=== PATIENT | female | born 1945 | race Hispanic/Latino ===

== ENCOUNTER → 2019-11-19 | Outpatient (CLI) | payer OTHER | END | disposition home or self-care (01) | LOC: OIH 15:18 | PROVIDERS: ATTEND Family Medicine | DX: M25.411 Effusion, right shoulder (principal) | CPT/HCPCS: 73030 ==

== ENCOUNTER → 2019-12-04 | Outpatient (CLI) | payer OTHER ==
[~2019-12-04] MED LIST: IOHEXOL-350 50ML VIAL IV ONE
== END | disposition home or self-care (01) ==
LOC: RAH 14:09
PROVIDERS: ATTEND Family Medicine
DX: R41.3 Other amnesia (principal)
CPT/HCPCS: 70470; Q9967

== ENCOUNTER 2021-01-29 10:45 | Observation (INO) | payer MEDICARE ==
[2021-01-25 17:20] LABS: BASOPHILS % (AUTO) 0.7 % (0.0-5.0); EOSINOPHILS % (AUTO) 2.3 % (0.0-8.0); HEMATOCRIT 41.4 % (36-48); LYMPHOCYTES % (AUTO) 28.2 % (21.0-51.0); MEAN CORPUSCULAR HEMOGLOBIN 31.2 pg (27.0-33.0); MEAN CORPUSCULAR HGB CONC 33.1 g/dL (32.0-36.0); MEAN CORPUSCULAR VOLUME 94.3 fL (79-99); MONOCYTES % (AUTO) 10.7 % (3.0-13.0); NEUTROPHILS % (AUTO) 57.5 % (40.0-77.0); PLATELET COUNT (AUTO) 256 K/uL (130-400); RED BLOOD CELL COUNT(AUTO) 4.39 MIL/uL (4.00-5.50); RED CELL DISTRIBUTION WIDTH 13.1 % (11.0-15.5)
[2021-01-28 11:11] VITALS: BP 129/66
[2021-01-29] VITALS (17 sets, daily range): BP systolic 85–132; BP diastolic 32–63
[~2021-01-29] VITALS: Ht 149.9 cm; Wt 74.8 kg
[~2021-01-29 10:45] MED LIST changes: +ACET-66 PO; +CELE200 PO; +FISH1CAP27 PO; -IOHEXOL-350 50ML VIAL IV ONE; +LEVO50CA4 PO; +LOSA25TA41 PO; +METO-409 PO; +OMEP40CA21 PO; +PRAV20TA4 PO; +VENL-63 PO; +vitamin d3 PO
[2021-01-29] MEDS ORDERED: BUPIVACAINE LIPOSOME/PF 266 MG/20 ML ML IV SCH (11:30)
[2021-01-29] MEDS ORDERED: LACTATED RINGERS 1000ML 1,000 ML IV ONE (11:30)
[2021-01-29] MEDS ORDERED: CEFAZOLIN SODIUM 1 GM VIAL ONE (11:42)
[2021-01-29] MEDS ORDERED: LIDOCAINE PF 100MG/5ML (2%) SYRINGE 5ML ONE (12:35)
[2021-01-29] MEDS ORDERED: SUCCINYLCHOLINE 200MG/10ML SYR ONE (12:35)
[2021-01-29] MEDS ORDERED: ROCURONIUM 10MG/1ML SYR 10 MG/ML ML ONE ×2 (12:35→14:53)
[2021-01-29] MEDS ORDERED: DEXAMETHASONE SOD PHOSPHATE 10MG/ML 1ML VIAL ONE (12:35)
[2021-01-29] MEDS ORDERED: GLYCOPYRROLATE 1 MG/5 ML SYRINGE ONE (12:35)
[2021-01-29] MEDS ORDERED: MIDAZOLAM HCL 1 MG/ML 2ML VIAL ONE (12:35)
[2021-01-29] MEDS ORDERED: ONDANSETRON 4MG INJ ONE (12:35)
[2021-01-29] MEDS ORDERED: PROPOFOL 10 MG/ML 20ML VIAL IV ONE ×2 (12:35→15:43)
[2021-01-29] MEDS ORDERED: NEOSTIGMINE 5MG/5ML SYR IV ONE (12:35)
[2021-01-29] MEDS ORDERED: FENTANYL CITRATE PF 50 MCG/1 ML 5ML AMP IV ONE (12:36)
[2021-01-29] MEDS ORDERED: EPHEDRINE SULFATE 50 MG/ML AMPULE ONE ×2 (12:57→16:14)
[2021-01-29] MEDS ORDERED: MEPERIDINE-PF 25 MG/ML SYG ONE (15:45)
[2021-01-29] MEDS ORDERED: MORPHINE 10MG VIAL IM PRN (19:30)
[2021-01-29] MEDS ORDERED: ACETAMINOPHEN 500 MG TABLET PO PRN ×2 (19:30→19:45)
[2021-01-29] MEDS ORDERED: ONDANSETRON 4MG INJ IVP PRN (19:30)
[2021-01-29] MEDS ORDERED: LORAZEPAM 1 MG TABLET PO PRN (19:30)
[2021-01-29] MEDS ORDERED: DEXTROSE 5 %-0.45 % NACL 1,000 ML IV SCH (19:30)
[2021-01-29] MEDS: ACETAMINOPHEN 500 MG TABLET PO SCH (20:19)
[2021-01-29] MEDS ORDERED: ATORVASTATIN 10 MG TABLET ONE (22:16)
[2021-01-30 00:15] VITALS: BP 119/61
[2021-01-30] MEDS: ACETAMINOPHEN 500 MG TABLET PO SCH (03:43)
[2021-01-30 03:46] VITALS: BP 113/62
[2021-01-30] MEDS ORDERED: LEVOTHYROXINE 50 MCG TABLET PO SCH (06:30)
[2021-01-30] MEDS ORDERED: VENLAFAXINE HCL 75 MG TAB PO SCH (09:00)
[2021-01-30] MEDS ORDERED: LOSARTAN 25 MG TABLET PO SCH (09:00)
[2021-01-30] MEDS ORDERED: METOPROLOL SUCCINATE 50 MG TAB.SR.24H PO SCH (09:00)
[2021-01-30] MEDS ORDERED: PANTOPRAZOLE 40 MG TAB DR PO SCH (09:00)
[2021-01-30] MEDS ORDERED: ATORVASTATIN 10 MG TABLET PO SCH (21:00)
== END 2021-01-30 06:58 | disposition home or self-care (01) ==
LOC: DAH 10:45 → DAHIP 10:46 → WSH 15:30
PROVIDERS: ADMIT Obstetrics & Gynecology; ATTEND Obstetrics & Gynecology
DX: N95.0 Postmenopausal bleeding (principal); D25.9 Leiomyoma of uterus, unspecified; Z20.822 Contact with and (suspected) exposure to COVID-19
CPT/HCPCS: 36415 ×2; 58552; 85025; 86850 ×2; 86900 ×2; 86901 ×2; 87635; 96360; 96361 ×2; A4215 ×3; A4221; A4222; A4223; A4344; A4510; A4600; A4649 ×4; A4930; A6260; C9290; C9803; G0168; G0378 ×16; J0330; J0690; J1100; J2001; J2175; J2250; J2405; J2704 ×2; J2710; J3010; J3490 ×3; J7030; J7120 ×2